=== PATIENT | male | born 1990 | race Two or more races ===

== ENCOUNTER 2023-07-24 16:34 | Emergency (ER) | payer OTHER ==
[~2023-07-24] VITALS: Ht 167.6 cm; Wt 81.6 kg
[2023-07-24] MEDS ORDERED: LORAZEPAM 1 MG TABLET ONE (19:55)
[2023-07-24] MEDS ORDERED: LORAZEPAM 1 MG TABLET PO ONE (20:00)
[2023-07-24 21:18] VITALS: BP 138/89; TEMP 98.2; O2SAT 98
== END 2023-07-24 21:18 | disposition home or self-care (01) ==
LOC: ER 16:36
DX: F16.90 Hallucinogen use, unspecified, uncomplicated (principal); F32.A Depression, unspecified; F41.9 Anxiety disorder, unspecified